=== PATIENT | male | born 1995 | race Hispanic/Latino ===

== ENCOUNTER 2020-04-24 15:58 | Emergency (ER) | payer OTHER ==
[2020-04-24] MEDS ORDERED: MORPHINE SULFATE 4 MG/1ML SYG ONE (16:09)
[2020-04-24] MEDS ORDERED: ONDANSETRON HCL 4 MG/2 ML VIAL ONE (16:09)
[2020-04-24] MEDS ORDERED: ETOMIDATE 2 MG/ML 10 ML VIAL ONE (16:22)
[2020-04-24 16:24] LABS: CREATININE 1.6 mg/dL (0.5-1.5); POTASSIUM 3.1 mmol/L (3.5-5.1)
== END 2020-04-24 18:12 | disposition home or self-care (01) ==
LOC: EDH 15:58
DX: S53.105A Unspecified dislocation of left ulnohumeral joint, initial encounter (principal); S42.402A Unspecified fracture of lower end of left humerus, initial encounter for closed fracture; X58.XXXA Exposure to other specified factors, initial encounter; Y93.89 Activity, other specified; Y92.89 Other specified places as the place of occurrence of the external cause; Y99.8 Other external cause status
CPT/HCPCS: 24600; 36415; 73070 ×2; 80048; 96374; 96375; 99152; 99285; J2270; J2405; J3490